=== PATIENT | male | born 1960 | race African-American/Black ===

== ENCOUNTER 2021-08-26 13:46 | Inpatient (IN) | payer BC ==
[2021-08-26 14:03] VITALS: BMI 34.8
[2021-08-26] MEDS ORDERED: ACETAMINOPHEN 1000 MG/100 ML BAG IVPB ONE (15:48)
[2021-08-26 16:19] LABS: BASO % 0.4 % (0-2.0); EOS % 0.1 % (0-4.5); HEMATOCRIT 34.9 % (35.4-49); HEMOGLOBIN 11.5 GM/dL (11.7-16.9); LYMPH % 11.9 % (8-40); MCH 26.8 pg (25.7-33.7); MEAN CELL VOLUME 81.4 fl (80-96); MEAN PLT VOLUME 8.1 fl (7.5-11.1); MONO % 11.9 % (3.8-10.2); NEUT % 75.7 % (42.8-82.8); PLATELET COUNT 220 10^3/uL (134-434); RBC 4.29 M/mm3 (4.00-5.60); RDW 14.6 % (11.9-15.9); WHITE BLOOD COUNT 8.8 K/mm3 (4.0-10.0)
[2021-08-26 16:26] LABS: INR 1.29 (0.83-1.09); PROTHROMBIN TIME (PATIENT) 14.9 SEC (9.7-13.0)
[2021-08-26 16:29] LABS: ACTIVATED PTT 30.4 SECONDS (25.2-36.5)
[2021-08-26] MEDS ORDERED: ACETAMINOPHEN INJECTION 100 ML IVPB ONE (16:31)
[2021-08-26 16:39] LABS: CALCIUM 8.9 mg/dL (8.5-10.1)
[2021-08-26 16:40] LABS: BLOOD UREA NITROGEN 17.5 mg/dL (7-18)
[2021-08-26 16:43] LABS: CREATININE 0.9 mg/dL (0.55-1.3)
[2021-08-26 16:44] LABS: BILIRUBIN,TOTAL 0.6 mg/dL (0.2-1); TOT PROT 6.6 g/dl (6.4-8.2)
[2021-08-26 16:47] LABS: N-TERMINAL BNP 7663.1 pg/ml (5-125)
[2021-08-26] MEDS ORDERED: LIDOCAINE 5% TOPICAL PATCH TP ONE (17:04)
[2021-08-26 17:07] LABS: ERYTHROCYTE SEDIMENTATION RATE 54 mm/hr (0-20)
[2021-08-26] MEDS ORDERED: LIDOCAINE 5% TOPICAL PATCH ONE (17:55)
[2021-08-26] MEDS ORDERED: morphine CARPU-JECT 2 MG/1 ML DISP.SYRIN IVPUSH ONE (20:21)
[2021-08-26] MEDS ORDERED: FUROSEMIDE 40 MG/4 ML INJECTABLE VIAL IVPUSH ONE (20:21)
[2021-08-26] MEDS ORDERED: FUROSEMIDE 40 MG/4 ML INJECTABLE VIAL ONE (20:43)
[2021-08-26] MEDS ORDERED: LIDOCAINE PATCH REMOVAL MC SCH (22:00)
[2021-08-26] MEDS ORDERED: BISACODYL 5 MG TABLET.DR (FP) PO ONE (22:16)
[2021-08-26] MEDS ORDERED: morphine CARPU-JECT 2 MG/1 ML DISP.SYRIN IVPUSH PRN (22:16)
[2021-08-26 23:00] LABS: EPI CELLS 2 /uL (0-25.1); HYALINE CASTS 0 /uL (0-3.1); URINE APPEARANCE CLEAR; URINE BACTERIA 6 /uL (0-1359); URINE BILIRUBIN NEGATIVE (NEGATIVE); URINE COLOR YELLOW; URINE GLUCOSE (UA) 1+ (NEGATIVE); URINE KETONE NEGATIVE (NEGATIVE); URINE LEUK ESTERASE TRACE (NEGATIVE); URINE NITRITE NEGATIVE (NEGATIVE); URINE PROTEIN NEGATIVE (NEGATIVE); URINE RBC 2 /uL (0-23.9); URINE UROBILINOGEN 0.2 mg/dL (0.2-1.0); URINE WBC 3 /uL (0-25.8)
[2021-08-26] MEDS: INSULIN (LEVEMIR) 100 UNITS/ML UNITS SQ SCH (23:35)
[2021-08-26] MEDS: CEPHALEXIN MONOHYDRATE 500 MG CAPSULE (UD) PO SCH (23:57)
[2021-08-27] MEDS: KETOROLAC TROMETHAMINE 15 MG/ML VIAL IVPUSH PRN (03:48)
[2021-08-27] MEDS ORDERED: BISACODYL 10 MG SUPP.RECT PR PRN (03:48)
[2021-08-27] MEDS: SENNOSIDES 8.6MG TABLET (FP) PO SCH ×3 (04:34→21:36)
[2021-08-27] MEDS: DOCUSATE SODIUM 100 MG CAPSULE (FP) PO SCH ×3 (04:34→21:36)
[2021-08-27] MEDS: POLYETHYLENE GLYCOL (HEALTHYLAX) 3350 17 GM PACKET PO SCH ×2 (04:34→09:34)
[2021-08-27] MEDS: CEPHALEXIN MONOHYDRATE 500 MG CAPSULE (UD) PO SCH ×2 (06:03→14:24)
[2021-08-27] MEDS: INSULIN SLIDING SCALE (NOVOLOG) 1 VIAL SQ SCH ×4 (06:03→21:39)
[2021-08-27 08:40] LABS: BASO % 0.4 % (0-2.0); EOS % 0.3 % (0-4.5); HEMATOCRIT 33.5 % (35.4-49); HEMOGLOBIN 11.1 GM/dL (11.7-16.9); LYMPH % 13.7 % (8-40); MCH 26.9 pg (25.7-33.7); MCHC 33.1 g/dl (32.0-35.9); MEAN CELL VOLUME 81.3 fl (80-96); MEAN PLT VOLUME 7.9 fl (7.5-11.1); MONO % 10.3 % (3.8-10.2); NEUT % 75.3 % (42.8-82.8); PLATELET COUNT 243 10^3/uL (134-434); RBC 4.13 M/mm3 (4.00-5.60); RDW 14.6 % (11.9-15.9); WHITE BLOOD COUNT 8.9 K/mm3 (4.0-10.0)
[2021-08-27 09:04] LABS: BLOOD UREA NITROGEN 16.4 mg/dL (7-18); CALCIUM 8.9 mg/dL (8.5-10.1)
[2021-08-27 09:05] LABS: ALBUMIN 2.8 g/dl (3.4-5.0); MAGNESIUM 2.2 mg/dL (1.8-2.4)
[2021-08-27 09:07] LABS: PHOSPHOROUS 3.5 mg/dL (2.5-4.9)
[2021-08-27 09:08] LABS: CREATININE 0.8 mg/dL (0.55-1.3)
[2021-08-27 09:09] LABS: BILIRUBIN,TOTAL 0.8 mg/dL (0.2-1); TOT PROT 6.4 g/dl (6.4-8.2)
[2021-08-27] MEDS: CYCLOBENZAPRINE HCL 5 MG TABLET PO PRN ×3 (09:34→21:45)
[2021-08-27] MEDS: ENOXAPARIN NA (PORCINE) 40 MG/0.4 ML DISP.SYRIN SQ SCH (09:35)
[2021-08-27] MEDS: SACUBITRIL/VALSARTAN 24 MG-26 MG TABLET PO SCH ×2 (09:36→21:44)
[2021-08-27] MEDS: INSULIN (LEVEMIR) 100 UNITS/ML UNITS SQ SCH ×2 (09:37→21:39)
[2021-08-27] MEDS ORDERED: FUROSEMIDE 20 MG TABLET (FP) PO SCH (10:00)
[2021-08-27] MEDS ORDERED: LIDOCAINE PATCH REMOVAL MC SCH (10:52)
[2021-08-27 11:34] LABS: METHADONE, UR NEGATIVE (NEGATIVE); PHENCYCLIDINE,URINE NEGATIVE (NEGATIVE); URINE AMPHETAMINES NEGATIVE (NEGATIVE)
[2021-08-27 11:35] LABS: URINE BENZODIAZEPINES NEGATIVE (NEGATIVE)
[2021-08-27 11:36] LABS: COCAINE, UR NEGATIVE (NEGATIVE); OPIATES, URI POSITIVE (NEGATIVE); URINE BARBITURATES NEGATIVE (NEGATIVE)
[2021-08-27] MEDS ORDERED: DEXTROSE 5%-WATER - 50 ML IVPB ONE ×2 (13:02→16:11)
[2021-08-27] MEDS ORDERED: PIPERACILLIN/TAZOBACTAM 3.375 GM VIAL IVPB ONE ×2 (13:02→16:11)
[2021-08-27] MEDS: PIPERACILLIN/TAZOB 3.375 GM 3.375 GM in DEXTROSE 5%-WATER - 50 ML IVPB SCH ×2 (13:10→17:03)
[2021-08-27] MEDS: PANTOPRAZOLE 40 MG TABLET PO SCH (14:22)
[2021-08-27] MEDS: VANCOMYCIN/WATER 1250 MG 1,250 MG/250 ML BAG IVPB SCH (14:23)
[2021-08-27] MEDS: FUROSEMIDE 40 MG/4 ML INJECTABLE VIAL IVPUSH SCH (14:23)
[2021-08-27] MEDS: SIMETHICONE 80 MG TAB.CHEW (FP) PO PRN (17:02)
[2021-08-27] MEDS ORDERED: PIPERACILLIN/TAZOB 3.375 GM 3.375 GM in DEXTROSE 5%-WATER - 50 ML IVPB SCH (18:00)
[2021-08-27] MEDS: ATORVASTATIN CA 40 MG TABLET (FP) PO SCH (21:36)
[2021-08-28] MEDS ORDERED: PIPERACILLIN/TAZOBACTAM 3.375 GM VIAL IVPB ONE ×3 (01:21→17:47)
[2021-08-28] MEDS ORDERED: DEXTROSE 5%-WATER - 50 ML IVPB ONE ×3 (01:21→17:47)
[2021-08-28] MEDS: VANCOMYCIN/WATER 1250 MG 1,250 MG/250 ML BAG IVPB SCH ×2 (01:43→12:18)
[2021-08-28] MEDS ORDERED: ALBUTEROL SO4 HFA INHALER IH PRN (02:57)
[2021-08-28] MEDS ORDERED: ALBUTEROL SO4 0.083% IH SOL 2.5 MG/3 ML VIAL.NEB. NEB PRN (02:57)
[2021-08-28] MEDS: PIPERACILLIN/TAZOB 3.375 GM 3.375 GM in DEXTROSE 5%-WATER - 50 ML IVPB SCH ×3 (03:22→17:52)
[2021-08-28] MEDS: INSULIN SLIDING SCALE (NOVOLOG) 1 VIAL SQ SCH ×4 (07:34→22:14)
[2021-08-28] MEDS: FUROSEMIDE 40 MG/4 ML INJECTABLE VIAL IVPUSH SCH ×2 (07:37→15:35)
[2021-08-28 09:52] LABS: BASO % 0.3 % (0-2.0); EOS % 0.1 % (0-4.5); HEMATOCRIT 36.4 % (35.4-49); HEMOGLOBIN 11.8 GM/dL (11.7-16.9); LYMPH % 11.3 % (8-40); MCH 26.2 pg (25.7-33.7); MCHC 32.4 g/dl (32.0-35.9); MEAN CELL VOLUME 80.7 fl (80-96); MEAN PLT VOLUME 8.4 fl (7.5-11.1); NEUT % 77.3 % (42.8-82.8); PLATELET COUNT 321 10^3/uL (134-434); RBC 4.51 M/mm3 (4.00-5.60); RDW 14.6 % (11.9-15.9); WHITE BLOOD COUNT 10.9 K/mm3 (4.0-10.0)
[2021-08-28] MEDS: POLYETHYLENE GLYCOL (HEALTHYLAX) 3350 17 GM PACKET PO SCH ×2 (10:17→10:21)
[2021-08-28] MEDS: PANTOPRAZOLE 40 MG TABLET PO SCH (10:17)
[2021-08-28] MEDS: SACUBITRIL/VALSARTAN 24 MG-26 MG TABLET PO SCH ×2 (10:17→21:58)
[2021-08-28] MEDS: SENNOSIDES 8.6MG TABLET (FP) PO SCH ×3 (10:17→21:59)
[2021-08-28] MEDS: INSULIN (LEVEMIR) 100 UNITS/ML UNITS SQ SCH ×2 (10:17→22:41)
[2021-08-28] MEDS: ENOXAPARIN NA (PORCINE) 40 MG/0.4 ML DISP.SYRIN SQ SCH (10:18)
[2021-08-28] MEDS: KETOROLAC TROMETHAMINE 15 MG/ML VIAL IVPUSH PRN (10:26)
[2021-08-28 12:35] LABS: CALCIUM 8.7 mg/dL (8.5-10.1)
[2021-08-28 12:36] LABS: ALBUMIN 2.5 g/dl (3.4-5.0); MAGNESIUM 2.2 mg/dL (1.8-2.4)
[2021-08-28 12:39] LABS: CREATININE 0.7 mg/dL (0.55-1.3)
[2021-08-28 12:40] LABS: BILIRUBIN,TOTAL 0.7 mg/dL (0.2-1); TOT PROT 6.1 g/dl (6.4-8.2)
[2021-08-28] MEDS ORDERED: INSULIN (NOVOLOG) ASPART 100 UNITS/ML 10ML VIAL ONE (12:41)
[2021-08-28] MEDS ORDERED: INSULIN (LEVEMIR) 100 UNITS/ML UNITS SQ ONE (12:41)
[2021-08-28] MEDS: DOCUSATE SODIUM 100 MG CAPSULE (FP) PO SCH (21:57)
[2021-08-28] MEDS: TICAGRELOR 90 MG TABLET PO SCH (21:57)
[2021-08-28] MEDS: ATORVASTATIN CA 40 MG TABLET (FP) PO SCH (21:58)
[2021-08-28] MEDS: SIMETHICONE 80 MG TAB.CHEW (FP) PO PRN (22:05)
[2021-08-29] MEDS: VANCOMYCIN/WATER 1250 MG 1,250 MG/250 ML BAG IVPB SCH ×2 (00:07→13:15)
[2021-08-29] MEDS ORDERED: DEXTROSE 5%-WATER - 50 ML IVPB ONE ×3 (01:03→11:40)
[2021-08-29] MEDS ORDERED: PIPERACILLIN/TAZOBACTAM 3.375 GM VIAL IVPB ONE ×3 (01:03→11:39)
[2021-08-29] MEDS: PIPERACILLIN/TAZOB 3.375 GM 3.375 GM in DEXTROSE 5%-WATER - 50 ML IVPB SCH ×2 (02:06→11:41)
[2021-08-29] MEDS ORDERED: DEXTROSE 50%-WATER 25 GM/50 ML DISP.SYRIN IVPUSH ONE (04:28)
[2021-08-29] MEDS ORDERED: DEXTROSE 50%-WATER 25 GM/50 ML DISP.SYRIN ONE (04:38)
[2021-08-29] MEDS: FUROSEMIDE 40 MG/4 ML INJECTABLE VIAL IVPUSH SCH ×2 (06:12→14:15)
[2021-08-29] MEDS: INSULIN SLIDING SCALE (NOVOLOG) 1 VIAL SQ SCH ×4 (06:15→21:10)
[2021-08-29] MEDS: INSULIN (LEVEMIR) 100 UNITS/ML UNITS SQ SCH ×2 (06:18→21:09)
[2021-08-29] MEDS ORDERED: INSULIN (NOVOLOG) ASPART 100 UNITS/ML 10ML VIAL ONE (07:59)
[2021-08-29 09:46] LABS: BASO % 0.2 % (0-2.0); EOS % 0.4 % (0-4.5); HEMATOCRIT 42.2 % (35.4-49); HEMOGLOBIN 13.9 GM/dL (11.7-16.9); LYMPH % 14.4 % (8-40); MCH 26.5 pg (25.7-33.7); MCHC 32.8 g/dl (32.0-35.9); MEAN CELL VOLUME 80.7 fl (80-96); MEAN PLT VOLUME 7.5 fl (7.5-11.1); MONO % 12.4 % (3.8-10.2); NEUT % 72.6 % (42.8-82.8); PLATELET COUNT 375 10^3/uL (134-434); RBC 5.23 M/mm3 (4.00-5.60); RDW 14.6 % (11.9-15.9); WHITE BLOOD COUNT 9.4 K/mm3 (4.0-10.0)
[2021-08-29 10:17] LABS: ALBUMIN 2.4 g/dl (3.4-5.0); BLOOD UREA NITROGEN 13.7 mg/dL (7-18); CALCIUM 8.5 mg/dL (8.5-10.1)
[2021-08-29 10:19] LABS: BILIRUBIN,TOTAL 0.5 mg/dL (0.2-1); TOT PROT 6.4 g/dl (6.4-8.2)
[2021-08-29 10:20] LABS: CREATININE 0.7 mg/dL (0.55-1.3); PHOSPHOROUS 3.8 mg/dL (2.5-4.9)
[2021-08-29 10:28] LABS: MAGNESIUM 2.3 mg/dL (1.8-2.4)
[2021-08-29 11:04] LABS: HIV INTERPRETATION NEGATIVE (NEGATIVE)
[2021-08-29] MEDS: PANTOPRAZOLE 40 MG TABLET PO SCH (11:42)
[2021-08-29] MEDS: TICAGRELOR 90 MG TABLET PO SCH (11:42)
[2021-08-29] MEDS: SENNOSIDES 8.6MG TABLET (FP) PO SCH ×2 (11:42→21:10)
[2021-08-29] MEDS: ENOXAPARIN NA (PORCINE) 40 MG/0.4 ML DISP.SYRIN SQ SCH (11:42)
[2021-08-29] MEDS: POLYETHYLENE GLYCOL (HEALTHYLAX) 3350 17 GM PACKET PO SCH (11:42)
[2021-08-29] MEDS: ARIPiprazole 5 MG TABLET PO SCH (11:43)
[2021-08-29] MEDS: SACUBITRIL/VALSARTAN 24 MG-26 MG TABLET PO SCH ×2 (11:43→21:40)
[2021-08-29] MEDS: BACITRACIN 15 GM TUBE TOPICAL OINTMENT TP SCH (12:04)
[2021-08-29] MEDS: metoPROLOL SUCCINATE 25 MG TAB.SR.24H (FP) PO SCH (15:06)
[2021-08-29] MEDS: DAPTOMYCIN 900 MG in SODIUM CHLORIDE 100 ML IVPB SCH (17:22)
[2021-08-29] MEDS: DOCUSATE SODIUM 100 MG CAPSULE (FP) PO SCH (21:09)
[2021-08-29] MEDS: SIMETHICONE 80 MG TAB.CHEW (FP) PO PRN (21:40)
[2021-08-30] MEDS: FUROSEMIDE 40 MG/4 ML INJECTABLE VIAL IVPUSH SCH ×2 (05:48→15:10)
[2021-08-30] MEDS: CYCLOBENZAPRINE HCL 5 MG TABLET PO PRN (05:52)
[2021-08-30] MEDS: INSULIN (LEVEMIR) 100 UNITS/ML UNITS SQ SCH ×2 (06:18→22:11)
[2021-08-30] MEDS: INSULIN SLIDING SCALE (NOVOLOG) 1 VIAL SQ SCH ×4 (06:18→22:11)
[2021-08-30 08:58] LABS: BASO % 0.3 % (0-2.0); EOS % 1.1 % (0-4.5); HEMATOCRIT 41.6 % (35.4-49); HEMOGLOBIN 13.4 GM/dL (11.7-16.9); LYMPH % 20.2 % (8-40); MCH 26.1 pg (25.7-33.7); MCHC 32.2 g/dl (32.0-35.9); MEAN CELL VOLUME 81.1 fl (80-96); MEAN PLT VOLUME 7.7 fl (7.5-11.1); MONO % 12.7 % (3.8-10.2); NEUT % 65.7 % (42.8-82.8); PLATELET COUNT 424 10^3/uL (134-434); RBC 5.13 M/mm3 (4.00-5.60); RDW 14.6 % (11.9-15.9); WHITE BLOOD COUNT 8.7 K/mm3 (4.0-10.0)
[2021-08-30 09:25] LABS: BLOOD UREA NITROGEN 16.1 mg/dL (7-18)
[2021-08-30 09:26] LABS: ALBUMIN 2.4 g/dl (3.4-5.0); CALCIUM 8.3 mg/dL (8.5-10.1); MAGNESIUM 2.4 mg/dL (1.8-2.4)
[2021-08-30 09:28] LABS: CREATININE 0.8 mg/dL (0.55-1.3)
[2021-08-30 09:29] LABS: PHOSPHOROUS 3.1 mg/dL (2.5-4.9)
[2021-08-30 09:30] LABS: BILIRUBIN,TOTAL 0.5 mg/dL (0.2-1); TOT PROT 6.4 g/dl (6.4-8.2)
[2021-08-30] MEDS: metoPROLOL SUCCINATE 25 MG TAB.SR.24H (FP) PO SCH (10:52)
[2021-08-30] MEDS: PANTOPRAZOLE 40 MG TABLET PO SCH (10:52)
[2021-08-30] MEDS: SENNOSIDES 8.6MG TABLET (FP) PO SCH ×2 (10:53→22:12)
[2021-08-30] MEDS: ARIPiprazole 5 MG TABLET PO SCH (10:53)
[2021-08-30] MEDS: SPIRONOLACTONE 25 MG TABLET PO SCH (10:53)
[2021-08-30] MEDS: ENOXAPARIN NA (PORCINE) 40 MG/0.4 ML DISP.SYRIN SQ SCH (10:54)
[2021-08-30] MEDS: POLYETHYLENE GLYCOL (HEALTHYLAX) 3350 17 GM PACKET PO SCH (10:54)
[2021-08-30] MEDS: DAPTOMYCIN 900 MG in SODIUM CHLORIDE 100 ML IVPB SCH (10:55)
[2021-08-30] MEDS: SACUBITRIL/VALSARTAN 24 MG-26 MG TABLET PO SCH ×2 (10:55→22:11)
[2021-08-30] MEDS: BACITRACIN 15 GM TUBE TOPICAL OINTMENT TP SCH (10:57)
[2021-08-30 11:03] LABS: HIV INTERPRETATION NEGATIVE (NEGATIVE)
[2021-08-30] MEDS: DOCUSATE SODIUM 100 MG CAPSULE (FP) PO SCH (22:11)
[2021-08-31] MEDS ORDERED: DEXTROSE 50%-WATER - 25 GM/50 ML VIAL IVPUSH ONE (02:22)
[2021-08-31] MEDS ORDERED: DEXTROSE 50%-WATER 25 GM/50 ML DISP.SYRIN ONE (02:25)
[2021-08-31] MEDS: FUROSEMIDE 40 MG/4 ML INJECTABLE VIAL IVPUSH SCH ×2 (06:22→13:50)
[2021-08-31] MEDS: INSULIN SLIDING SCALE (NOVOLOG) 1 VIAL SQ SCH ×4 (06:23→22:23)
[2021-08-31] MEDS: INSULIN (LEVEMIR) 100 UNITS/ML UNITS SQ SCH (06:23)
[2021-08-31 09:42] LABS: BASO % 0.4 % (0-2.0); EOS % 0.8 % (0-4.5); HEMATOCRIT 42.6 % (35.4-49); HEMOGLOBIN 13.7 GM/dL (11.7-16.9); LYMPH % 21.3 % (8-40); MCH 26.3 pg (25.7-33.7); MCHC 32.1 g/dl (32.0-35.9); MEAN CELL VOLUME 81.8 fl (80-96); MEAN PLT VOLUME 7.7 fl (7.5-11.1); MONO % 10.3 % (3.8-10.2); NEUT % 67.2 % (42.8-82.8); PLATELET COUNT 445 10^3/uL (134-434); RBC 5.21 M/mm3 (4.00-5.60); RDW 14.5 % (11.9-15.9); WHITE BLOOD COUNT 7.9 K/mm3 (4.0-10.0)
[2021-08-31 10:08] LABS: ALBUMIN 2.4 g/dl (3.4-5.0); BLOOD UREA NITROGEN 19.6 mg/dL (7-18)
[2021-08-31 10:09] LABS: CALCIUM 8.6 mg/dL (8.5-10.1)
[2021-08-31 10:10] LABS: MAGNESIUM 2.4 mg/dL (1.8-2.4)
[2021-08-31 10:11] LABS: CREATININE 0.8 mg/dL (0.55-1.3); PHOSPHOROUS 3.3 mg/dL (2.5-4.9)
[2021-08-31 10:12] LABS: BILIRUBIN,TOTAL 0.4 mg/dL (0.2-1); TOT PROT 6.4 g/dl (6.4-8.2)
[2021-08-31] MEDS: ARIPiprazole 5 MG TABLET PO SCH (10:25)
[2021-08-31] MEDS: ENOXAPARIN NA (PORCINE) 40 MG/0.4 ML DISP.SYRIN SQ SCH (10:25)
[2021-08-31] MEDS: SPIRONOLACTONE 25 MG TABLET PO SCH (10:26)
[2021-08-31] MEDS: PANTOPRAZOLE 40 MG TABLET PO SCH (10:26)
[2021-08-31] MEDS: SACUBITRIL/VALSARTAN 24 MG-26 MG TABLET PO SCH ×2 (10:26→22:19)
[2021-08-31] MEDS: SENNOSIDES 8.6MG TABLET (FP) PO SCH ×2 (10:26→22:19)
[2021-08-31] MEDS: metoPROLOL SUCCINATE 25 MG TAB.SR.24H (FP) PO SCH (10:26)
[2021-08-31] MEDS: BACITRACIN 15 GM TUBE TOPICAL OINTMENT TP SCH (10:26)
[2021-08-31] MEDS: POLYETHYLENE GLYCOL (HEALTHYLAX) 3350 17 GM PACKET PO SCH (10:26)
[2021-08-31] MEDS: DAPTOMYCIN 900 MG in SODIUM CHLORIDE 100 ML IVPB SCH (10:41)
[2021-08-31] MEDS: DOCUSATE SODIUM 100 MG CAPSULE (FP) PO SCH (22:19)
[2021-09-01] MEDS: CYCLOBENZAPRINE HCL 5 MG TABLET PO PRN ×3 (02:58→16:54)
[2021-09-01] MEDS: FUROSEMIDE 40 MG/4 ML INJECTABLE VIAL IVPUSH SCH ×2 (06:32→16:51)
[2021-09-01] MEDS: INSULIN SLIDING SCALE (NOVOLOG) 1 VIAL SQ SCH ×4 (06:34→21:53)
[2021-09-01] MEDS: INSULIN (LEVEMIR) 100 UNITS/ML UNITS SQ SCH (06:34)
[2021-09-01 09:27] LABS: BASO % 0.5 % (0-2.0); EOS % 1.3 % (0-4.5); HEMATOCRIT 39.5 % (35.4-49); LYMPH % 23.2 % (8-40); MCH 26.4 pg (25.7-33.7); MCHC 32.9 g/dl (32.0-35.9); MEAN CELL VOLUME 80.3 fl (80-96); MEAN PLT VOLUME 7.4 fl (7.5-11.1); MONO % 9.4 % (3.8-10.2); NEUT % 65.6 % (42.8-82.8); PLATELET COUNT 430 10^3/uL (134-434); RBC 4.92 M/mm3 (4.00-5.60); RDW 14.4 % (11.9-15.9); WHITE BLOOD COUNT 8.4 K/mm3 (4.0-10.0)
[2021-09-01] MEDS: SENNOSIDES 8.6MG TABLET (FP) PO SCH ×2 (09:57→21:55)
[2021-09-01] MEDS: PANTOPRAZOLE 40 MG TABLET PO SCH (09:57)
[2021-09-01] MEDS: metoPROLOL SUCCINATE 25 MG TAB.SR.24H (FP) PO SCH (09:57)
[2021-09-01] MEDS: ARIPiprazole 5 MG TABLET PO SCH (09:57)
[2021-09-01] MEDS: SPIRONOLACTONE 25 MG TABLET PO SCH (09:57)
[2021-09-01] MEDS: BACITRACIN 15 GM TUBE TOPICAL OINTMENT TP SCH (09:58)
[2021-09-01] MEDS: ENOXAPARIN NA (PORCINE) 40 MG/0.4 ML DISP.SYRIN SQ SCH (09:59)
[2021-09-01] MEDS: SACUBITRIL/VALSARTAN 24 MG-26 MG TABLET PO SCH ×2 (09:59→21:55)
[2021-09-01 10:14] LABS: ALBUMIN 2.4 g/dl (3.4-5.0); CALCIUM 8.6 mg/dL (8.5-10.1)
[2021-09-01 10:15] LABS: BLOOD UREA NITROGEN 17.3 mg/dL (7-18); MAGNESIUM 2.4 mg/dL (1.8-2.4)
[2021-09-01 10:16] LABS: CREATININE 0.8 mg/dL (0.55-1.3)
[2021-09-01 10:18] LABS: BILIRUBIN,TOTAL 0.3 mg/dL (0.2-1); PHOSPHOROUS 2.6 mg/dL (2.5-4.9); TOT PROT 6.4 g/dl (6.4-8.2)
[2021-09-01] MEDS: DAPTOMYCIN 900 MG in SODIUM CHLORIDE 100 ML IVPB SCH (10:25)
[2021-09-01] MEDS: POLYETHYLENE GLYCOL (HEALTHYLAX) 3350 17 GM PACKET PO SCH ×2 (16:51→21:56)
[2021-09-01] MEDS: DOCUSATE SODIUM 100 MG CAPSULE (FP) PO SCH (21:55)
[2021-09-02] MEDS: INSULIN SLIDING SCALE (NOVOLOG) 1 VIAL SQ SCH ×4 (06:07→22:05)
[2021-09-02] MEDS: INSULIN (LEVEMIR) 100 UNITS/ML UNITS SQ SCH (06:07)
[2021-09-02] MEDS: FUROSEMIDE 40 MG/4 ML INJECTABLE VIAL IVPUSH SCH ×2 (06:08→14:55)
[2021-09-02] MEDS: POLYETHYLENE GLYCOL (HEALTHYLAX) 3350 17 GM PACKET PO SCH ×2 (06:08→22:04)
[2021-09-02] MEDS: DAPTOMYCIN 900 MG in SODIUM CHLORIDE 100 ML IVPB SCH (09:16)
[2021-09-02] MEDS: ENOXAPARIN NA (PORCINE) 40 MG/0.4 ML DISP.SYRIN SQ SCH (09:16)
[2021-09-02] MEDS: SACUBITRIL/VALSARTAN 24 MG-26 MG TABLET PO SCH ×2 (09:18→22:03)
[2021-09-02] MEDS: PANTOPRAZOLE 40 MG TABLET PO SCH (09:19)
[2021-09-02] MEDS: metoPROLOL SUCCINATE 25 MG TAB.SR.24H (FP) PO SCH (09:21)
[2021-09-02] MEDS: ARIPiprazole 5 MG TABLET PO SCH (09:21)
[2021-09-02] MEDS: SENNOSIDES 8.6MG TABLET (FP) PO SCH ×2 (09:22→22:04)
[2021-09-02] MEDS: SPIRONOLACTONE 25 MG TABLET PO SCH (09:22)
[2021-09-02] MEDS: BACITRACIN 15 GM TUBE TOPICAL OINTMENT TP SCH (09:35)
[2021-09-02 10:00] LABS: BASO % 0.8 % (0-2.0); EOS % 1.2 % (0-4.5); HEMATOCRIT 40.3 % (35.4-49); HEMOGLOBIN 12.7 GM/dL (11.7-16.9); LYMPH % 26.1 % (8-40); MCH 25.7 pg (25.7-33.7); MCHC 31.5 g/dl (32.0-35.9); MEAN CELL VOLUME 81.6 fl (80-96); MEAN PLT VOLUME 7.8 fl (7.5-11.1); MONO % 8.4 % (3.8-10.2); NEUT % 63.5 % (42.8-82.8); PLATELET COUNT 506 10^3/uL (134-434); RBC 4.94 M/mm3 (4.00-5.60); RDW 14.7 % (11.9-15.9); WHITE BLOOD COUNT 8.9 K/mm3 (4.0-10.0)
[2021-09-02 10:38] LABS: BLOOD UREA NITROGEN 16.9 mg/dL (7-18); CALCIUM 8.8 mg/dL (8.5-10.1)
[2021-09-02 10:39] LABS: ALBUMIN 2.6 g/dl (3.4-5.0); MAGNESIUM 2.4 mg/dL (1.8-2.4)
[2021-09-02 10:41] LABS: PHOSPHOROUS 3.3 mg/dL (2.5-4.9)
[2021-09-02 10:43] LABS: BILIRUBIN,TOTAL 0.3 mg/dL (0.2-1); TOT PROT 6.9 g/dl (6.4-8.2)
[2021-09-02 10:51] LABS: CREATININE 0.9 mg/dL (0.55-1.3)
[2021-09-02] MEDS: DOCUSATE SODIUM 100 MG CAPSULE (FP) PO SCH (22:04)
[2021-09-03] MEDS: FUROSEMIDE 40 MG/4 ML INJECTABLE VIAL IVPUSH SCH ×2 (05:51→15:20)
[2021-09-03] MEDS: INSULIN SLIDING SCALE (NOVOLOG) 1 VIAL SQ SCH ×4 (06:17→21:35)
[2021-09-03] MEDS: INSULIN (LEVEMIR) 100 UNITS/ML UNITS SQ SCH (06:17)
[2021-09-03 09:34] LABS: BASO % 0.5 % (0-2.0); EOS % 1.1 % (0-4.5); HEMOGLOBIN 13.7 GM/dL (11.7-16.9); LYMPH % 28.7 % (8-40); MCH 26.1 pg (25.7-33.7); MCHC 31.8 g/dl (32.0-35.9); MEAN CELL VOLUME 82.1 fl (80-96); MEAN PLT VOLUME 7.5 fl (7.5-11.1); MONO % 7.9 % (3.8-10.2); NEUT % 61.8 % (42.8-82.8); PLATELET COUNT 516 10^3/uL (134-434); RBC 5.24 M/mm3 (4.00-5.60); RDW 14.2 % (11.9-15.9); WHITE BLOOD COUNT 7.6 K/mm3 (4.0-10.0)
[2021-09-03] MEDS: metoPROLOL SUCCINATE 25 MG TAB.SR.24H (FP) PO SCH (09:49)
[2021-09-03] MEDS: POLYETHYLENE GLYCOL (HEALTHYLAX) 3350 17 GM PACKET PO SCH ×2 (09:49→21:41)
[2021-09-03] MEDS: SENNOSIDES 8.6MG TABLET (FP) PO SCH ×2 (09:49→21:34)
[2021-09-03] MEDS: PANTOPRAZOLE 40 MG TABLET PO SCH (09:49)
[2021-09-03] MEDS: ENOXAPARIN NA (PORCINE) 40 MG/0.4 ML DISP.SYRIN SQ SCH (09:49)
[2021-09-03] MEDS: LIDOCAINE 5% TOPICAL PATCH TP SCH (09:49)
[2021-09-03] MEDS: SACUBITRIL/VALSARTAN 24 MG-26 MG TABLET PO SCH ×2 (09:50→22:08)
[2021-09-03] MEDS: DAPTOMYCIN 900 MG in SODIUM CHLORIDE 100 ML IVPB SCH (09:50)
[2021-09-03] MEDS: SPIRONOLACTONE 25 MG TABLET PO SCH (09:53)
[2021-09-03] MEDS: ARIPiprazole 5 MG TABLET PO SCH (09:53)
[2021-09-03 09:59] LABS: ALBUMIN 2.8 g/dl (3.4-5.0); BLOOD UREA NITROGEN 21.5 mg/dL (7-18); CALCIUM 9.5 mg/dL (8.5-10.1)
[2021-09-03 10:01] LABS: MAGNESIUM 2.4 mg/dL (1.8-2.4)
[2021-09-03 10:04] LABS: CREATININE 0.9 mg/dL (0.55-1.3); TOT PROT 7.3 g/dl (6.4-8.2)
[2021-09-03 10:05] LABS: BILIRUBIN,TOTAL 0.3 mg/dL (0.2-1)
[2021-09-03] MEDS: BACITRACIN 15 GM TUBE TOPICAL OINTMENT TP SCH (11:19)
[2021-09-03] MEDS: SIMETHICONE 80 MG TAB.CHEW (FP) PO PRN (19:30)
[2021-09-03] MEDS: DOCUSATE SODIUM 100 MG CAPSULE (FP) PO SCH (21:33)
[2021-09-03] MEDS: GABAPENTIN 300 MG CAPSULE PO SCH (21:33)
[2021-09-03] MEDS: LIDOCAINE PATCH REMOVAL MC SCH (21:36)
[2021-09-04] MEDS: INSULIN (LEVEMIR) 100 UNITS/ML UNITS SQ SCH (06:20)
[2021-09-04] MEDS: INSULIN SLIDING SCALE (NOVOLOG) 1 VIAL SQ SCH ×4 (06:21→21:28)
[2021-09-04 09:52] LABS: BASO % 0.6 % (0-2.0); EOS % 1.4 % (0-4.5); HEMATOCRIT 39.9 % (35.4-49); HEMOGLOBIN 12.9 GM/dL (11.7-16.9); LYMPH % 24.3 % (8-40); MCH 26.3 pg (25.7-33.7); MCHC 32.2 g/dl (32.0-35.9); MEAN CELL VOLUME 81.6 fl (80-96); MEAN PLT VOLUME 7.5 fl (7.5-11.1); MONO % 8.7 % (3.8-10.2); PLATELET COUNT 532 10^3/uL (134-434); RBC 4.89 M/mm3 (4.00-5.60); RDW 14.6 % (11.9-15.9); WHITE BLOOD COUNT 6.3 K/mm3 (4.0-10.0)
[2021-09-04 10:20] LABS: ALBUMIN 2.6 g/dl (3.4-5.0); CALCIUM 8.8 mg/dL (8.5-10.1)
[2021-09-04 10:21] LABS: BLOOD UREA NITROGEN 26.3 mg/dL (7-18); MAGNESIUM 2.2 mg/dL (1.8-2.4)
[2021-09-04 10:23] LABS: CREATININE 1.1 mg/dL (0.55-1.3); PHOSPHOROUS 4.1 mg/dL (2.5-4.9)
[2021-09-04 10:24] LABS: BILIRUBIN,TOTAL 0.2 mg/dL (0.2-1); TOT PROT 6.6 g/dl (6.4-8.2)
[2021-09-04] MEDS: PANTOPRAZOLE 40 MG TABLET PO SCH (11:54)
[2021-09-04] MEDS: SENNOSIDES 8.6MG TABLET (FP) PO SCH ×2 (11:54→21:09)
[2021-09-04] MEDS: ARIPiprazole 5 MG TABLET PO SCH (11:54)
[2021-09-04] MEDS: POLYETHYLENE GLYCOL (HEALTHYLAX) 3350 17 GM PACKET PO SCH ×3 (11:54→21:09)
[2021-09-04] MEDS: ENOXAPARIN NA (PORCINE) 40 MG/0.4 ML DISP.SYRIN SQ SCH (11:54)
[2021-09-04] MEDS: SPIRONOLACTONE 25 MG TABLET PO SCH (11:54)
[2021-09-04] MEDS: SACUBITRIL/VALSARTAN 24 MG-26 MG TABLET PO SCH ×2 (11:56→21:10)
[2021-09-04] MEDS: DAPTOMYCIN 900 MG in SODIUM CHLORIDE 100 ML IVPB SCH (11:56)
[2021-09-04] MEDS: BACITRACIN 15 GM TUBE TOPICAL OINTMENT TP SCH (12:07)
[2021-09-04] MEDS: FUROSEMIDE 40 MG TABLET (FP) PO SCH (12:10)
[2021-09-04] MEDS: metoPROLOL SUCCINATE 25 MG TAB.SR.24H (FP) PO SCH (12:10)
[2021-09-04] MEDS: LIDOCAINE 5% TOPICAL PATCH TP SCH ×2 (12:10→21:11)
[2021-09-04] MEDS ORDERED: ACETAMINOPHEN 1000 MG/100 ML BAG IVPB ONE (20:10)
[2021-09-04] MEDS: GABAPENTIN 300 MG CAPSULE PO SCH (21:09)
[2021-09-04] MEDS: DOCUSATE SODIUM 100 MG CAPSULE (FP) PO SCH (21:10)
[2021-09-04] MEDS: LIDOCAINE PATCH REMOVAL MC SCH ×2 (21:10)
[2021-09-04] MEDS ORDERED: INSULIN (NOVOLOG) ASPART 100 UNITS/ML 10ML VIAL ONE ×3 (21:16→21:21)
[2021-09-05] MEDS: LIDOCAINE 5% TOPICAL PATCH TP SCH ×3 (02:32→11:44)
[2021-09-05] MEDS ORDERED: INSULIN (NOVOLOG) ASPART 100 UNITS/ML 10ML VIAL ONE (05:36)
[2021-09-05] MEDS: INSULIN SLIDING SCALE (NOVOLOG) 1 VIAL SQ SCH ×4 (06:18→22:11)
[2021-09-05] MEDS: INSULIN (LEVEMIR) 100 UNITS/ML UNITS SQ SCH (06:18)
[2021-09-05 08:48] LABS: BASO % 0.9 % (0-2.0); EOS % 1.6 % (0-4.5); HEMATOCRIT 38.6 % (35.4-49); HEMOGLOBIN 12.5 GM/dL (11.7-16.9); LYMPH % 33.1 % (8-40); MCH 26.3 pg (25.7-33.7); MCHC 32.4 g/dl (32.0-35.9); MEAN CELL VOLUME 81.1 fl (80-96); MEAN PLT VOLUME 7.3 fl (7.5-11.1); MONO % 9.7 % (3.8-10.2); NEUT % 54.7 % (42.8-82.8); PLATELET COUNT 558 10^3/uL (134-434); RBC 4.76 M/mm3 (4.00-5.60); RDW 14.5 % (11.9-15.9); WHITE BLOOD COUNT 5.4 K/mm3 (4.0-10.0)
[2021-09-05 09:26] LABS: ALBUMIN 2.6 g/dl (3.4-5.0); CALCIUM 9.1 mg/dL (8.5-10.1); MAGNESIUM 2.5 mg/dL (1.8-2.4)
[2021-09-05 09:29] LABS: PHOSPHOROUS 3.2 mg/dL (2.5-4.9)
[2021-09-05 09:31] LABS: BILIRUBIN,TOTAL 0.3 mg/dL (0.2-1); TOT PROT 6.8 g/dl (6.4-8.2)
[2021-09-05 09:32] LABS: CREATININE 0.9 mg/dL (0.55-1.3)
[2021-09-05] MEDS: ENOXAPARIN NA (PORCINE) 40 MG/0.4 ML DISP.SYRIN SQ SCH (11:39)
[2021-09-05] MEDS: SENNOSIDES 8.6MG TABLET (FP) PO SCH ×2 (11:40→22:10)
[2021-09-05] MEDS: ARIPiprazole 5 MG TABLET PO SCH (11:40)
[2021-09-05] MEDS: metoPROLOL SUCCINATE 25 MG TAB.SR.24H (FP) PO SCH (11:40)
[2021-09-05] MEDS: FUROSEMIDE 40 MG TABLET (FP) PO SCH (11:40)
[2021-09-05] MEDS: SPIRONOLACTONE 25 MG TABLET PO SCH (11:40)
[2021-09-05] MEDS: DAPTOMYCIN 900 MG in SODIUM CHLORIDE 100 ML IVPB SCH (11:41)
[2021-09-05] MEDS: POLYETHYLENE GLYCOL (HEALTHYLAX) 3350 17 GM PACKET PO SCH ×2 (11:41→22:10)
[2021-09-05] MEDS: SACUBITRIL/VALSARTAN 24 MG-26 MG TABLET PO SCH ×2 (11:44→22:11)
[2021-09-05] MEDS: PANTOPRAZOLE 40 MG TABLET PO SCH (11:52)
[2021-09-05] MEDS: BACITRACIN 15 GM TUBE TOPICAL OINTMENT TP SCH (12:02)
[2021-09-05] MEDS: DOCUSATE SODIUM 100 MG CAPSULE (FP) PO SCH (22:10)
[2021-09-05] MEDS: GABAPENTIN 300 MG CAPSULE PO SCH (22:10)
[2021-09-05] MEDS: CYCLOBENZAPRINE HCL 5 MG TABLET PO PRN (22:14)
[2021-09-05] MEDS: LIDOCAINE PATCH REMOVAL MC SCH ×2 (22:30)
[2021-09-06] MEDS: INSULIN (LEVEMIR) 100 UNITS/ML UNITS SQ SCH (06:23)
[2021-09-06] MEDS: INSULIN SLIDING SCALE (NOVOLOG) 1 VIAL SQ SCH ×4 (06:23→22:01)
[2021-09-06] MEDS ORDERED: INSULIN (NOVOLOG) ASPART 100 UNITS/ML 10ML VIAL ONE (07:32)
[2021-09-06 07:38] LABS: BASO % 0.6 % (0-2.0); EOS % 1.1 % (0-4.5); HEMATOCRIT 39.1 % (35.4-49); HEMOGLOBIN 12.5 GM/dL (11.7-16.9); LYMPH % 34.7 % (8-40); MCH 25.7 pg (25.7-33.7); MCHC 31.9 g/dl (32.0-35.9); MEAN CELL VOLUME 80.5 fl (80-96); MEAN PLT VOLUME 7.5 fl (7.5-11.1); MONO % 10.2 % (3.8-10.2); NEUT % 53.4 % (42.8-82.8); PLATELET COUNT 522 10^3/uL (134-434); RBC 4.86 M/mm3 (4.00-5.60); RDW 14.3 % (11.9-15.9); WHITE BLOOD COUNT 5.6 K/mm3 (4.0-10.0)
[2021-09-06 08:13] LABS: BILIRUBIN,TOTAL 0.4 mg/dL (0.2-1); TOT PROT 6.6 g/dl (6.4-8.2)
[2021-09-06 08:14] LABS: ALBUMIN 2.6 g/dl (3.4-5.0); BLOOD UREA NITROGEN 26.4 mg/dL (7-18); CREATININE 0.8 mg/dL (0.55-1.3); MAGNESIUM 2.4 mg/dL (1.8-2.4); PHOSPHOROUS 3.4 mg/dL (2.5-4.9)
[2021-09-06] MEDS: DAPTOMYCIN 900 MG in SODIUM CHLORIDE 100 ML IVPB SCH (11:37)
[2021-09-06] MEDS: SACUBITRIL/VALSARTAN 24 MG-26 MG TABLET PO SCH ×2 (11:39→21:55)
[2021-09-06] MEDS: BACITRACIN 15 GM TUBE TOPICAL OINTMENT TP SCH (11:39)
[2021-09-06] MEDS: LIDOCAINE 5% TOPICAL PATCH TP SCH ×2 (11:47→11:51)
[2021-09-06] MEDS: ARIPiprazole 5 MG TABLET PO SCH (11:48)
[2021-09-06] MEDS: FUROSEMIDE 40 MG TABLET (FP) PO SCH (11:49)
[2021-09-06] MEDS: SPIRONOLACTONE 25 MG TABLET PO SCH (11:50)
[2021-09-06] MEDS: PANTOPRAZOLE 40 MG TABLET PO SCH (11:50)
[2021-09-06] MEDS: ENOXAPARIN NA (PORCINE) 40 MG/0.4 ML DISP.SYRIN SQ SCH (11:50)
[2021-09-06] MEDS: SENNOSIDES 8.6MG TABLET (FP) PO SCH ×2 (11:51→21:57)
[2021-09-06] MEDS: POLYETHYLENE GLYCOL (HEALTHYLAX) 3350 17 GM PACKET PO SCH ×2 (11:51→21:55)
[2021-09-06] MEDS: CYCLOBENZAPRINE HCL 5 MG TABLET PO PRN (19:00)
[2021-09-06] MEDS: DOCUSATE SODIUM 100 MG CAPSULE (FP) PO SCH (21:55)
[2021-09-06] MEDS: GABAPENTIN 300 MG CAPSULE PO SCH (21:57)
[2021-09-06] MEDS: LIDOCAINE PATCH REMOVAL MC SCH ×2 (22:02)
[2021-09-07] MEDS: INSULIN (LEVEMIR) 100 UNITS/ML UNITS SQ SCH (06:16)
[2021-09-07] MEDS: INSULIN SLIDING SCALE (NOVOLOG) 1 VIAL SQ SCH ×4 (06:16→21:52)
[2021-09-07 08:54] LABS: BASO % 0.8 % (0-2.0); EOS % 1.8 % (0-4.5); HEMATOCRIT 39.1 % (35.4-49); HEMOGLOBIN 12.8 GM/dL (11.7-16.9); LYMPH % 43.3 % (8-40); MCH 26.2 pg (25.7-33.7); MCHC 32.6 g/dl (32.0-35.9); MEAN CELL VOLUME 80.4 fl (80-96); MEAN PLT VOLUME 7.5 fl (7.5-11.1); MONO % 11.3 % (3.8-10.2); NEUT % 42.8 % (42.8-82.8); PLATELET COUNT 567 10^3/uL (134-434); RBC 4.87 M/mm3 (4.00-5.60); RDW 14.2 % (11.9-15.9); WHITE BLOOD COUNT 4.8 K/mm3 (4.0-10.0)
[2021-09-07 09:15] LABS: CALCIUM 9.2 mg/dL (8.5-10.1)
[2021-09-07 09:16] LABS: ALBUMIN 2.7 g/dl (3.4-5.0); BLOOD UREA NITROGEN 19.7 mg/dL (7-18); MAGNESIUM 2.3 mg/dL (1.8-2.4)
[2021-09-07 09:19] LABS: BILIRUBIN,TOTAL 0.2 mg/dL (0.2-1); CREATININE 0.7 mg/dL (0.55-1.3); PHOSPHOROUS 4.1 mg/dL (2.5-4.9); TOT PROT 6.9 g/dl (6.4-8.2)
[2021-09-07] MEDS: ARIPiprazole 5 MG TABLET PO SCH (10:32)
[2021-09-07] MEDS: FUROSEMIDE 40 MG TABLET (FP) PO SCH (10:33)
[2021-09-07] MEDS: PANTOPRAZOLE 40 MG TABLET PO SCH (10:33)
[2021-09-07] MEDS: SENNOSIDES 8.6MG TABLET (FP) PO SCH ×2 (10:33→21:51)
[2021-09-07] MEDS: BACITRACIN 15 GM TUBE TOPICAL OINTMENT TP SCH (10:33)
[2021-09-07] MEDS: SPIRONOLACTONE 25 MG TABLET PO SCH (10:33)
[2021-09-07] MEDS: ENOXAPARIN NA (PORCINE) 40 MG/0.4 ML DISP.SYRIN SQ SCH (10:34)
[2021-09-07] MEDS: POLYETHYLENE GLYCOL (HEALTHYLAX) 3350 17 GM PACKET PO SCH ×2 (10:34→21:51)
[2021-09-07] MEDS: LIDOCAINE 5% TOPICAL PATCH TP SCH ×2 (10:35→10:56)
[2021-09-07] MEDS: DAPTOMYCIN 900 MG in SODIUM CHLORIDE 100 ML IVPB SCH ×2 (10:57→11:33)
[2021-09-07] MEDS: SACUBITRIL/VALSARTAN 24 MG-26 MG TABLET PO SCH ×2 (10:57→21:54)
[2021-09-07] MEDS ORDERED: INSULIN (NOVOLOG) ASPART 100 UNITS/ML 10ML VIAL ONE ×3 (11:34→16:57)
[2021-09-07] MEDS ORDERED: INSULIN (NOVOLOG MIX 70/30) 100 UNITS/ML MDV SQ ONE (12:20)
[2021-09-07] MEDS: CYCLOBENZAPRINE HCL 5 MG TABLET PO PRN (16:30)
[2021-09-07] MEDS: GABAPENTIN 300 MG CAPSULE PO SCH (21:51)
[2021-09-07] MEDS: DOCUSATE SODIUM 100 MG CAPSULE (FP) PO SCH (21:51)
[2021-09-07] MEDS: LIDOCAINE PATCH REMOVAL MC SCH ×2 (21:52)
[2021-09-08] MEDS ORDERED: ACETAMINOPHEN 1000 MG/100 ML BAG IVPB ONE ×2 (01:08→22:27)
[2021-09-08] MEDS: INSULIN SLIDING SCALE (NOVOLOG) 1 VIAL SQ SCH ×4 (06:30→22:14)
[2021-09-08] MEDS: INSULIN (LEVEMIR) 100 UNITS/ML UNITS SQ SCH (06:31)
[2021-09-08 08:51] LABS: BASO % 0.9 % (0-2.0); EOS % 1.9 % (0-4.5); HEMATOCRIT 37.4 % (35.4-49); HEMOGLOBIN 12.3 GM/dL (11.7-16.9); LYMPH % 44.9 % (8-40); MCH 26.4 pg (25.7-33.7); MEAN CELL VOLUME 79.9 fl (80-96); MEAN PLT VOLUME 7.3 fl (7.5-11.1); MONO % 10.9 % (3.8-10.2); NEUT % 41.4 % (42.8-82.8); PLATELET COUNT 546 10^3/uL (134-434); RBC 4.68 M/mm3 (4.00-5.60); RDW 14.2 % (11.9-15.9); WHITE BLOOD COUNT 4.8 K/mm3 (4.0-10.0)
[2021-09-08 08:55] LABS: CALCIUM 9.2 mg/dL (8.5-10.1)
[2021-09-08 08:56] LABS: ALBUMIN 2.6 g/dl (3.4-5.0); BLOOD UREA NITROGEN 22.6 mg/dL (7-18); MAGNESIUM 2.3 mg/dL (1.8-2.4)
[2021-09-08 08:57] LABS: CREATININE 0.8 mg/dL (0.55-1.3); PHOSPHOROUS 4.5 mg/dL (2.5-4.9)
[2021-09-08 08:59] LABS: BILIRUBIN,TOTAL 0.2 mg/dL (0.2-1); TOT PROT 6.6 g/dl (6.4-8.2)
[2021-09-08] MEDS: PANTOPRAZOLE 40 MG TABLET PO SCH (10:51)
[2021-09-08] MEDS: FUROSEMIDE 40 MG TABLET (FP) PO SCH (10:51)
[2021-09-08] MEDS: ARIPiprazole 5 MG TABLET PO SCH (10:51)
[2021-09-08] MEDS: SENNOSIDES 8.6MG TABLET (FP) PO SCH ×2 (10:51→22:14)
[2021-09-08] MEDS: POLYETHYLENE GLYCOL (HEALTHYLAX) 3350 17 GM PACKET PO SCH ×2 (10:52→22:14)
[2021-09-08] MEDS: SACUBITRIL/VALSARTAN 24 MG-26 MG TABLET PO SCH ×2 (10:52→22:13)
[2021-09-08] MEDS: SPIRONOLACTONE 25 MG TABLET PO SCH (10:52)
[2021-09-08] MEDS: LIDOCAINE 5% TOPICAL PATCH TP SCH ×2 (10:53→10:57)
[2021-09-08] MEDS: ENOXAPARIN NA (PORCINE) 40 MG/0.4 ML DISP.SYRIN SQ SCH (10:58)
[2021-09-08] MEDS: BACITRACIN 15 GM TUBE TOPICAL OINTMENT TP SCH (10:58)
[2021-09-08] MEDS: DAPTOMYCIN 900 MG in SODIUM CHLORIDE 100 ML IVPB SCH (11:31)
[2021-09-08] MEDS: CYCLOBENZAPRINE HCL 5 MG TABLET PO PRN (22:13)
[2021-09-08] MEDS: GABAPENTIN 300 MG CAPSULE PO SCH (22:14)
[2021-09-08] MEDS: LIDOCAINE PATCH REMOVAL MC SCH ×2 (22:14)
[2021-09-08] MEDS: DOCUSATE SODIUM 100 MG CAPSULE (FP) PO SCH (22:14)
[2021-09-09] MEDS: INSULIN (LEVEMIR) 100 UNITS/ML UNITS SQ SCH (06:41)
[2021-09-09] MEDS: INSULIN SLIDING SCALE (NOVOLOG) 1 VIAL SQ SCH ×4 (06:42→21:57)
[2021-09-09 08:44] LABS: BASO % 1.2 % (0-2.0); EOS % 1.7 % (0-4.5); HEMOGLOBIN 13.2 GM/dL (11.7-16.9); MCH 26.1 pg (25.7-33.7); MCHC 32.3 g/dl (32.0-35.9); MEAN CELL VOLUME 80.8 fl (80-96); MEAN PLT VOLUME 7.2 fl (7.5-11.1); MONO % 8.6 % (3.8-10.2); NEUT % 46.5 % (42.8-82.8); PLATELET COUNT 546 10^3/uL (134-434); RBC 5.08 M/mm3 (4.00-5.60); RDW 14.3 % (11.9-15.9); WHITE BLOOD COUNT 5.3 K/mm3 (4.0-10.0)
[2021-09-09 09:12] LABS: CREATININE 0.9 mg/dL (0.55-1.3)
[2021-09-09 09:13] LABS: BLOOD UREA NITROGEN 26.6 mg/dL (7-18); PHOSPHOROUS 4.3 mg/dL (2.5-4.9)
[2021-09-09 09:14] LABS: BILIRUBIN,TOTAL 0.2 mg/dL (0.2-1); TOT PROT 7.4 g/dl (6.4-8.2)
[2021-09-09 09:16] LABS: MAGNESIUM 2.2 mg/dL (1.8-2.4)
[2021-09-09] MEDS: ENOXAPARIN NA (PORCINE) 40 MG/0.4 ML DISP.SYRIN SQ SCH (11:17)
[2021-09-09] MEDS: POLYETHYLENE GLYCOL (HEALTHYLAX) 3350 17 GM PACKET PO SCH ×2 (11:17→21:57)
[2021-09-09] MEDS: ARIPiprazole 5 MG TABLET PO SCH (11:18)
[2021-09-09] MEDS: FUROSEMIDE 40 MG TABLET (FP) PO SCH (11:18)
[2021-09-09] MEDS: SPIRONOLACTONE 25 MG TABLET PO SCH (11:18)
[2021-09-09] MEDS: PANTOPRAZOLE 40 MG TABLET PO SCH (11:19)
[2021-09-09] MEDS: DAPTOMYCIN 900 MG in SODIUM CHLORIDE 100 ML IVPB SCH (11:29)
[2021-09-09] MEDS: SACUBITRIL/VALSARTAN 24 MG-26 MG TABLET PO SCH ×2 (11:29→22:01)
[2021-09-09] MEDS: LIDOCAINE 5% TOPICAL PATCH TP SCH ×2 (11:29→11:30)
[2021-09-09] MEDS: SENNOSIDES 8.6MG TABLET (FP) PO SCH ×2 (15:26→21:57)
[2021-09-09] MEDS: BACITRACIN 15 GM TUBE TOPICAL OINTMENT TP SCH (16:40)
[2021-09-09] MEDS ORDERED: ACETAMINOPHEN 1000 MG/100 ML BAG IVPB ONE (17:49)
[2021-09-09] MEDS ORDERED: INSULIN (NOVOLOG) ASPART 100 UNITS/ML 10ML VIAL ONE (21:51)
[2021-09-09] MEDS: MELATONIN 5 MG TABLETS PO SCH (21:57)
[2021-09-09] MEDS: GABAPENTIN 300 MG CAPSULE PO SCH (21:57)
[2021-09-09] MEDS: DOCUSATE SODIUM 100 MG CAPSULE (FP) PO SCH (21:57)
[2021-09-09] MEDS: LIDOCAINE PATCH REMOVAL MC SCH ×2 (22:06)
[2021-09-10] MEDS: INSULIN SLIDING SCALE (NOVOLOG) 1 VIAL SQ SCH ×4 (06:46→21:49)
[2021-09-10] MEDS: INSULIN (LEVEMIR) 100 UNITS/ML UNITS SQ SCH (06:46)
[2021-09-10 08:30] LABS: BASO % 1.1 % (0-2.0); EOS % 1.6 % (0-4.5); HEMATOCRIT 37.5 % (35.4-49); HEMOGLOBIN 12.3 GM/dL (11.7-16.9); LYMPH % 38.9 % (8-40); MCH 26.3 pg (25.7-33.7); MCHC 32.9 g/dl (32.0-35.9); MEAN CELL VOLUME 80.1 fl (80-96); MEAN PLT VOLUME 7.1 fl (7.5-11.1); MONO % 10.8 % (3.8-10.2); NEUT % 47.6 % (42.8-82.8); PLATELET COUNT 473 10^3/uL (134-434); RBC 4.68 M/mm3 (4.00-5.60); RDW 14.4 % (11.9-15.9); WHITE BLOOD COUNT 4.7 K/mm3 (4.0-10.0)
[2021-09-10 09:06] LABS: CALCIUM 9.4 mg/dL (8.5-10.1)
[2021-09-10 09:07] LABS: ALBUMIN 2.8 g/dl (3.4-5.0); BLOOD UREA NITROGEN 26.5 mg/dL (7-18); MAGNESIUM 2.3 mg/dL (1.8-2.4)
[2021-09-10 09:09] LABS: CREATININE 0.8 mg/dL (0.55-1.3); PHOSPHOROUS 3.8 mg/dL (2.5-4.9)
[2021-09-10 09:11] LABS: BILIRUBIN,TOTAL 0.5 mg/dL (0.2-1); TOT PROT 6.8 g/dl (6.4-8.2)
[2021-09-10] MEDS: ARIPiprazole 5 MG TABLET PO SCH (11:08)
[2021-09-10] MEDS: POLYETHYLENE GLYCOL (HEALTHYLAX) 3350 17 GM PACKET PO SCH ×2 (11:08→21:50)
[2021-09-10] MEDS: FUROSEMIDE 40 MG TABLET (FP) PO SCH (11:09)
[2021-09-10] MEDS: DAPTOMYCIN 900 MG in SODIUM CHLORIDE 100 ML IVPB SCH (11:10)
[2021-09-10] MEDS: SACUBITRIL/VALSARTAN 24 MG-26 MG TABLET PO SCH ×2 (11:10→21:50)
[2021-09-10] MEDS: SENNOSIDES 8.6MG TABLET (FP) PO SCH ×2 (11:10→21:49)
[2021-09-10] MEDS: SPIRONOLACTONE 25 MG TABLET PO SCH (11:11)
[2021-09-10] MEDS: LIDOCAINE 5% TOPICAL PATCH TP SCH ×2 (11:12→11:14)
[2021-09-10] MEDS: ENOXAPARIN NA (PORCINE) 40 MG/0.4 ML DISP.SYRIN SQ SCH (11:14)
[2021-09-10] MEDS: PANTOPRAZOLE 40 MG TABLET PO SCH (11:14)
[2021-09-10] MEDS: oxyCODONE HCL 5 MG TABLET PO PRN (12:41)
[2021-09-10] MEDS: BACITRACIN 15 GM TUBE TOPICAL OINTMENT TP SCH (12:44)
[2021-09-10] MEDS: SIMETHICONE 80 MG TAB.CHEW (FP) PO PRN (20:44)
[2021-09-10] MEDS: MELATONIN 5 MG TABLETS PO SCH (21:49)
[2021-09-10] MEDS: GABAPENTIN 300 MG CAPSULE PO SCH (21:49)
[2021-09-10] MEDS: DOCUSATE SODIUM 100 MG CAPSULE (FP) PO SCH (21:49)
[2021-09-10] MEDS: LIDOCAINE PATCH REMOVAL MC SCH ×2 (21:57)
[2021-09-11] MEDS: INSULIN SLIDING SCALE (NOVOLOG) 1 VIAL SQ SCH ×4 (07:04→22:13)
[2021-09-11] MEDS: INSULIN (LEVEMIR) 100 UNITS/ML UNITS SQ SCH (07:04)
[2021-09-11] MEDS: oxyCODONE HCL 5 MG TABLET PO PRN ×2 (07:07→22:08)
[2021-09-11 08:37] LABS: EOS % 1.5 % (0-4.5); HEMATOCRIT 37.9 % (35.4-49); HEMOGLOBIN 12.3 GM/dL (11.7-16.9); LYMPH % 40.2 % (8-40); MCH 25.9 pg (25.7-33.7); MCHC 32.4 g/dl (32.0-35.9); MEAN CELL VOLUME 80.1 fl (80-96); MEAN PLT VOLUME 7.4 fl (7.5-11.1); MONO % 12.3 % (3.8-10.2); PLATELET COUNT 468 10^3/uL (134-434); RBC 4.73 M/mm3 (4.00-5.60); RDW 14.3 % (11.9-15.9)
[2021-09-11 08:52] LABS: ALBUMIN 2.8 g/dl (3.4-5.0); BLOOD UREA NITROGEN 27.4 mg/dL (7-18); CALCIUM 9.1 mg/dL (8.5-10.1); MAGNESIUM 2.1 mg/dL (1.8-2.4)
[2021-09-11 08:54] LABS: CREATININE 0.9 mg/dL (0.55-1.3)
[2021-09-11 08:57] LABS: BILIRUBIN,TOTAL 0.2 mg/dL (0.2-1)
[2021-09-11] MEDS: ARIPiprazole 5 MG TABLET PO SCH (09:19)
[2021-09-11] MEDS: POLYETHYLENE GLYCOL (HEALTHYLAX) 3350 17 GM PACKET PO SCH ×2 (09:20→21:58)
[2021-09-11] MEDS: ENOXAPARIN NA (PORCINE) 40 MG/0.4 ML DISP.SYRIN SQ SCH (09:20)
[2021-09-11] MEDS: LIDOCAINE 5% TOPICAL PATCH TP SCH ×2 (09:20→11:16)
[2021-09-11] MEDS: SPIRONOLACTONE 25 MG TABLET PO SCH (09:21)
[2021-09-11] MEDS: FUROSEMIDE 40 MG TABLET (FP) PO SCH (09:21)
[2021-09-11] MEDS: SENNOSIDES 8.6MG TABLET (FP) PO SCH ×2 (09:21→21:58)
[2021-09-11] MEDS: SACUBITRIL/VALSARTAN 24 MG-26 MG TABLET PO SCH ×2 (09:22→22:00)
[2021-09-11] MEDS: PANTOPRAZOLE 40 MG TABLET PO SCH (09:22)
[2021-09-11] MEDS: BACITRACIN 15 GM TUBE TOPICAL OINTMENT TP SCH (09:22)
[2021-09-11] MEDS: DAPTOMYCIN 900 MG in SODIUM CHLORIDE 100 ML IVPB SCH (11:14)
[2021-09-11] MEDS: MELATONIN 5 MG TABLETS PO SCH (21:58)
[2021-09-11] MEDS: LIDOCAINE PATCH REMOVAL MC SCH ×2 (21:58)
[2021-09-11] MEDS: DOCUSATE SODIUM 100 MG CAPSULE (FP) PO SCH (21:58)
[2021-09-11] MEDS: GABAPENTIN 300 MG CAPSULE PO SCH (21:58)
[2021-09-12] MEDS: INSULIN (LEVEMIR) 100 UNITS/ML UNITS SQ SCH (05:59)
[2021-09-12] MEDS: INSULIN SLIDING SCALE (NOVOLOG) 1 VIAL SQ SCH ×4 (05:59→21:56)
[2021-09-12 09:42] LABS: EOS % 1.5 % (0-4.5); HEMATOCRIT 38.1 % (35.4-49); HEMOGLOBIN 12.5 GM/dL (11.7-16.9); LYMPH % 44.4 % (8-40); MCH 26.1 pg (25.7-33.7); MCHC 32.7 g/dl (32.0-35.9); MEAN CELL VOLUME 79.7 fl (80-96); MEAN PLT VOLUME 7.7 fl (7.5-11.1); NEUT % 42.1 % (42.8-82.8); PLATELET COUNT 408 10^3/uL (134-434); RBC 4.78 M/mm3 (4.00-5.60); RDW 14.3 % (11.9-15.9); WHITE BLOOD COUNT 4.2 K/mm3 (4.0-10.0)
[2021-09-12] MEDS: ARIPiprazole 5 MG TABLET PO SCH (10:00)
[2021-09-12 10:50] LABS: ALBUMIN 2.8 g/dl (3.4-5.0); BLOOD UREA NITROGEN 26.6 mg/dL (7-18); CALCIUM 9.1 mg/dL (8.5-10.1); MAGNESIUM 2.1 mg/dL (1.8-2.4)
[2021-09-12 10:53] LABS: CREATININE 0.9 mg/dL (0.55-1.3); PHOSPHOROUS 4.4 mg/dL (2.5-4.9)
[2021-09-12] MEDS: DAPTOMYCIN 900 MG in SODIUM CHLORIDE 100 ML IVPB SCH (10:53)
[2021-09-12 10:54] LABS: TOT PROT 6.7 g/dl (6.4-8.2)
[2021-09-12] MEDS: SPIRONOLACTONE 25 MG TABLET PO SCH (10:54)
[2021-09-12] MEDS: PANTOPRAZOLE 40 MG TABLET PO SCH (10:54)
[2021-09-12] MEDS: LIDOCAINE 5% TOPICAL PATCH TP SCH ×2 (10:54→10:56)
[2021-09-12] MEDS: FUROSEMIDE 40 MG TABLET (FP) PO SCH (10:54)
[2021-09-12 10:55] LABS: BILIRUBIN,TOTAL 0.4 mg/dL (0.2-1)
[2021-09-12] MEDS: POLYETHYLENE GLYCOL (HEALTHYLAX) 3350 17 GM PACKET PO SCH ×2 (10:55→21:31)
[2021-09-12] MEDS: BACITRACIN 15 GM TUBE TOPICAL OINTMENT TP SCH (10:55)
[2021-09-12] MEDS: SACUBITRIL/VALSARTAN 24 MG-26 MG TABLET PO SCH ×2 (10:55→21:30)
[2021-09-12] MEDS: ENOXAPARIN NA (PORCINE) 40 MG/0.4 ML DISP.SYRIN SQ SCH (11:05)
[2021-09-12] MEDS: SENNOSIDES 8.6MG TABLET (FP) PO SCH ×2 (11:05→21:31)
[2021-09-12] MEDS ORDERED: INSULIN (NOVOLOG) ASPART 100 UNITS/ML 10ML VIAL ONE (11:28)
[2021-09-12] MEDS: oxyCODONE HCL 5 MG TABLET PO PRN (21:29)
[2021-09-12] MEDS: DOCUSATE SODIUM 100 MG CAPSULE (FP) PO SCH (21:30)
[2021-09-12] MEDS: GABAPENTIN 300 MG CAPSULE PO SCH (21:31)
[2021-09-12] MEDS: MELATONIN 5 MG TABLETS PO SCH (21:31)
[2021-09-12] MEDS: LIDOCAINE PATCH REMOVAL MC SCH ×2 (21:33)
[2021-09-13] MEDS ORDERED: INSULIN (NOVOLOG) ASPART 100 UNITS/ML 10ML VIAL ONE (06:39)
[2021-09-13] MEDS: INSULIN SLIDING SCALE (NOVOLOG) 1 VIAL SQ SCH ×4 (06:55→22:20)
[2021-09-13] MEDS: INSULIN (LEVEMIR) 100 UNITS/ML UNITS SQ SCH (06:55)
[2021-09-13 09:03] LABS: BASO % 0.9 % (0-2.0); EOS % 1.6 % (0-4.5); HEMATOCRIT 42.5 % (35.4-49); LYMPH % 38.9 % (8-40); MCH 26.4 pg (25.7-33.7); MCHC 32.9 g/dl (32.0-35.9); MEAN CELL VOLUME 80.3 fl (80-96); MEAN PLT VOLUME 7.6 fl (7.5-11.1); MONO % 12.3 % (3.8-10.2); NEUT % 46.3 % (42.8-82.8); PLATELET COUNT 444 10^3/uL (134-434); RDW 14.4 % (11.9-15.9); WHITE BLOOD COUNT 4.7 K/mm3 (4.0-10.0)
[2021-09-13 09:19] LABS: CALCIUM 9.6 mg/dL (8.5-10.1)
[2021-09-13 09:21] LABS: ALBUMIN 3.3 g/dl (3.4-5.0); MAGNESIUM 2.1 mg/dL (1.8-2.4)
[2021-09-13 09:22] LABS: PHOSPHOROUS 4.4 mg/dL (2.5-4.9)
[2021-09-13 09:23] LABS: CREATININE 0.9 mg/dL (0.55-1.3)
[2021-09-13 09:24] LABS: BILIRUBIN,TOTAL 0.3 mg/dL (0.2-1); TOT PROT 7.9 g/dl (6.4-8.2)
[2021-09-13] MEDS: ARIPiprazole 5 MG TABLET PO SCH (10:58)
[2021-09-13] MEDS: ENOXAPARIN NA (PORCINE) 40 MG/0.4 ML DISP.SYRIN SQ SCH (10:58)
[2021-09-13] MEDS: POLYETHYLENE GLYCOL (HEALTHYLAX) 3350 17 GM PACKET PO SCH ×2 (10:59→22:13)
[2021-09-13] MEDS: PANTOPRAZOLE 40 MG TABLET PO SCH (10:59)
[2021-09-13] MEDS: FUROSEMIDE 40 MG TABLET (FP) PO SCH (10:59)
[2021-09-13] MEDS: SACUBITRIL/VALSARTAN 24 MG-26 MG TABLET PO SCH (10:59)
[2021-09-13] MEDS: SPIRONOLACTONE 25 MG TABLET PO SCH (10:59)
[2021-09-13] MEDS: LIDOCAINE 5% TOPICAL PATCH TP SCH ×2 (11:00→11:01)
[2021-09-13] MEDS: SENNOSIDES 8.6MG TABLET (FP) PO SCH ×2 (11:16→22:13)
[2021-09-13] MEDS: BACITRACIN 15 GM TUBE TOPICAL OINTMENT TP SCH (11:16)
[2021-09-13] MEDS: DAPTOMYCIN 900 MG in SODIUM CHLORIDE 100 ML IVPB SCH (11:16)
[2021-09-13] MEDS ORDERED: oxyCODONE HCL 5 MG TABLET PO ONE (21:55)
[2021-09-13] MEDS: GABAPENTIN 300 MG CAPSULE PO SCH (22:13)
[2021-09-13] MEDS: MELATONIN 5 MG TABLETS PO SCH (22:13)
[2021-09-13] MEDS: DOCUSATE SODIUM 100 MG CAPSULE (FP) PO SCH (22:13)
[2021-09-13] MEDS: LIDOCAINE PATCH REMOVAL MC SCH ×2 (22:21)
[2021-09-14] MEDS: SACUBITRIL/VALSARTAN 24 MG-26 MG TABLET PO SCH ×2 (00:58→11:58)
[2021-09-14] MEDS: INSULIN (LEVEMIR) 100 UNITS/ML UNITS SQ SCH (06:40)
[2021-09-14] MEDS: INSULIN SLIDING SCALE (NOVOLOG) 1 VIAL SQ SCH ×2 (06:40→12:22)
[2021-09-14 08:35] LABS: BASO % 0.9 % (0-2.0); EOS % 1.5 % (0-4.5); HEMATOCRIT 38.2 % (35.4-49); HEMOGLOBIN 12.3 GM/dL (11.7-16.9); LYMPH % 45.7 % (8-40); MCH 25.7 pg (25.7-33.7); MCHC 32.1 g/dl (32.0-35.9); MEAN CELL VOLUME 80.2 fl (80-96); MEAN PLT VOLUME 7.8 fl (7.5-11.1); MONO % 11.5 % (3.8-10.2); NEUT % 40.4 % (42.8-82.8); PLATELET COUNT 349 10^3/uL (134-434); RBC 4.76 M/mm3 (4.00-5.60); RDW 14.2 % (11.9-15.9); WHITE BLOOD COUNT 4.5 K/mm3 (4.0-10.0)
[2021-09-14 09:03] LABS: ALBUMIN 2.9 g/dl (3.4-5.0); BLOOD UREA NITROGEN 26.5 mg/dL (7-18); CALCIUM 9.3 mg/dL (8.5-10.1); MAGNESIUM 2.3 mg/dL (1.8-2.4)
[2021-09-14 09:06] LABS: CREATININE 0.9 mg/dL (0.55-1.3); PHOSPHOROUS 3.9 mg/dL (2.5-4.9)
[2021-09-14 09:08] LABS: BILIRUBIN,TOTAL 0.4 mg/dL (0.2-1); TOT PROT 6.8 g/dl (6.4-8.2)
[2021-09-14] MEDS ORDERED: oxyCODONE HCL 5 MG TABLET PO PRN (09:35)
[2021-09-14] MEDS: SPIRONOLACTONE 25 MG TABLET PO SCH (10:22)
[2021-09-14] MEDS: ARIPiprazole 5 MG TABLET PO SCH (10:24)
[2021-09-14] MEDS: PANTOPRAZOLE 40 MG TABLET PO SCH (10:25)
[2021-09-14] MEDS: FUROSEMIDE 40 MG TABLET (FP) PO SCH (10:26)
[2021-09-14] MEDS: ENOXAPARIN NA (PORCINE) 40 MG/0.4 ML DISP.SYRIN SQ SCH (10:27)
[2021-09-14] MEDS: LIDOCAINE 5% TOPICAL PATCH TP SCH ×2 (10:27→11:59)
[2021-09-14] MEDS: POLYETHYLENE GLYCOL (HEALTHYLAX) 3350 17 GM PACKET PO SCH (10:28)
[2021-09-14] MEDS: BACITRACIN 15 GM TUBE TOPICAL OINTMENT TP SCH (10:35)
[2021-09-14] MEDS: SENNOSIDES 8.6MG TABLET (FP) PO SCH (11:58)
[2021-09-14] MEDS: DAPTOMYCIN 900 MG in SODIUM CHLORIDE 100 ML IVPB SCH (11:58)
[2021-09-14] MEDS ORDERED: VANCOMYCIN/WATER 1250 MG 1,250 MG/250 ML BAG IVPB SCH (13:00)
[2021-09-14 16:00] VITALS: BP 125/80; PULSE 65; TEMP 98
== END 2021-09-14 16:45 | DRG 871 ==
LOC: JER 13:46 → JERFT 13:46 → JERBED 20:54 → J8W 08-27 00:51 → OBSVTOIN 08-27 09:00 → J8W 09-04 12:58
PROVIDERS: ADMIT Hospitalist; ATTEND Internal Medicine
PROC: 02HV33Z Insertion of Infusion Device into Superior Vena Cava, Percutaneous Approach (ICD-10-PCS; principal; 2021-09-14)
PROC: B518ZZA Fluoroscopy of Superior Vena Cava, Guidance (ICD-10-PCS; 2021-09-14)
DX: R78.81 Bacteremia (principal); I50.23 Acute on chronic systolic (congestive) heart failure; L03.115 Cellulitis of right lower limb; L97.818 Non-pressure chronic ulcer of other part of right lower leg with other specified severity; M46.24 Osteomyelitis of vertebra, thoracic region; M54.30 Sciatica, unspecified side; E11.9 Type 2 diabetes mellitus without complications; E11.622 Type 2 diabetes mellitus with other skin ulcer; K76.0 Fatty (change of) liver, not elsewhere classified; I25.10 Atherosclerotic heart disease of native coronary artery without angina pectoris; L40.9 Psoriasis, unspecified; M54.59 Other low back pain; D64.9 Anemia, unspecified; Z95.5 Presence of coronary angioplasty implant and graft; E11.40 Type 2 diabetes mellitus with diabetic neuropathy, unspecified; J44.9 Chronic obstructive pulmonary disease, unspecified; E11.65 Type 2 diabetes mellitus with hyperglycemia; K59.00 Constipation, unspecified; E78.5 Hyperlipidemia, unspecified; B95.62 Methicillin resistant Staphylococcus aureus infection as the cause of diseases classified elsewhere; I11.0 Hypertensive heart disease with heart failure; L03.011 Cellulitis of right finger; R50.9 Fever, unspecified; D75.838 Other thrombocytosis; F12.10 Cannabis abuse, uncomplicated; F11.10 Opioid abuse, uncomplicated; M40.47 Postural lordosis, lumbosacral region; E66.9 Obesity, unspecified; Z68.33 Body mass index [BMI] 33.0-33.9, adult; M48.061 Spinal stenosis, lumbar region without neurogenic claudication; T23.021D Burn of unspecified degree of single right finger (nail) except thumb, subsequent encounter; X08.8XXD Exposure to other specified smoke, fire and flames, subsequent encounter; Z91.14 Patient's other noncompliance with medication regimen
CPT/HCPCS: 36415; 36569; 71046-TC-FY; 71275-TC; 72070-TC-FY; 72100-TC-FY; 72146-TC; 72147-TC; 72148-TC; 72149-TC; 73610-TC-RT-FY; 73630-TC-RT-FY; 76705-TC; 77001-TC-FY; 80048; 80053; 80061; 80307; 81003; 82550; 82962; 83036; 83735; 83880; 84100; 84443; 84484; 85025; 85379; 85610; 85651; 85730; 86140; 87040; 87086; 87186; 87389; 87804; 93005; 93010; 93306-TC; 93970-TC; 94640; 97116-GP; 97161-GP; 99285-25; A9579; C1751; C9803-CS; G0378; J0878; Q9967; U0003; U0005